=== PATIENT | male | born 1970 | race Caucasian/White ===

== ENCOUNTER → 2022-05-28 | Day surgery (SDC) | payer OTHER ==
[~2022-05-28] VITALS: Ht 182.9 cm; Wt 124.3 kg
[~2022-05-28] MED LIST: AMLODIPINE BESYL5 MG PO; JANUVIA50 MG PO; LEXAPRO 10MG TA10 MG PO; PRINIVIL20 MG PO
== END | disposition home or self-care (01) ==
LOC: FAS 06:10
DX: M13.852 Other specified arthritis, left hip (principal); I10 Essential (primary) hypertension; E11.9 Type 2 diabetes mellitus without complications; Z79.899 Other long term (current) drug therapy
CPT/HCPCS: 76000; J1040; J2001; J2250; J2704; J7120; Q9967